=== PATIENT | male | born 1945 | race Caucasian/White ===

== ENCOUNTER → 2016-09-25 | Outpatient (CLI) | payer MEDICARE | LOC: KOH-I 09-23 15:00 | DX: C34.90 Malignant neoplasm of unspecified part of unspecified bronchus or lung (principal); R59.0 Localized enlarged lymph nodes; Z90.2 Acquired absence of lung [part of]; R91.8 Other nonspecific abnormal finding of lung field; J98.4 Other disorders of lung; K76.0 Fatty (change of) liver, not elsewhere classified; K80.20 Calculus of gallbladder without cholecystitis without obstruction | CPT/HCPCS: 71260; Q9962 ==